=== PATIENT | female | born 1965 | race Two or more races ===

== ENCOUNTER 2020-02-23 16:22 | Emergency (ER) | payer OTHER ==
[~2020-02-23] VITALS: Ht 172.7 cm; Wt 47.6 kg
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
--- NOTE | 2020-02-23 16:27 | Emergency Room Report ---
History of Present Illness General Chief Complaint: Lower Extremity Injury Source: Patient Present Illness HPI Disclaimer: Please note that this report is being documented using DRAGON technology. This can lead to erroneous entry secondary to incorrect interpretation by the dictating instrument. HPI: 54-year-old female presents for evaluation of left knee pain and swelling. Symptoms ongoing over the past 2 years. She states she had a surgical repair after a knee fracture at [facility] 2 years ago. Chronic pain in that knee however she has been walking increased distances over the past few days. Notes increased swelling around the knee. Denies new trauma. Also reports a "knot" over the back of the knee. No skin breakdown. She reports some redness over the area she scratches on the pugh. Denies swelling of the lower extremity aside from in the popliteal fossa. Denies numbness or tingling. Pain with bearing weight. Improved by rest. Has not taken any medication prior to arrival. PMH: COPD, psychiatric history PSH: Left knee repair Allergies: Penicillin Social Hx: Tobacco use Allergies: Uncoded Allergies: PCN (Allergy, Unknown, 02/23/20) COVID-19 Screening Contact w/high risk pt: No Experienced COVID-19 symptoms?: No COVID-19 Testing performed JOURNAL CLERK: No Patient History Last Menstrual Period: unk Review of Systems All Other Systems: negative except mentioned in HPI Physical Exam Vital Signs Date Time Temp Pulse Resp B/P (MAP) Pulse Ox O2 Delivery O2 Flow Rate FiO2 02/23/20 16:18 98.2 94 18 103/55 (71) 95 Room Air General: Awake and alert, no acute distress HEENT: NC/AT. EOMI. Edentulous Resp: Normal work of breathing Skin: Intact. Multiple excoriations at different stages of healing over the lower extremity. No crepitus. There is approximately 8 x 10 circular area of erythema and warmth without significant edema, no crepitus, no purulent drainage over the anterior lateral portion of the mid pugh. MSK: Normal tone and bulk. Moving all extremities. Circumferential edema of the left knee with some limitation of range of motion on flexion extension secondary to pain. There is a palpable firm mass in the popliteal fossa. No pulsation. Brisk 2+ dorsalis pedis pulse. No edema of the lower extremities Neuro: Awake and alert. Mentating appropriately Medical Decision Making Diagnostic Impression: Primary Impression: Martin cyst Additional Impression: Cellulitis ER Course 54-year-old female with prior history of knee reconstruction presents for atraumatic left knee and swelling. Differential includes was not limited to occult injury, hardware failure, Martin's cyst, popliteal aneurysm, DVT, c ellulitis among others. The knee joint itself has mild circumferential edema but no overlying skin changes, no warmth or other clinical features of septic joint. There does appear to be an superficial cellulitis over the mid pugh. Ultrasound of the left lower extremity was obtained did not show deep vein thrombosis but did find a large Martin's cyst. This consistent with the pat ient's physical exam. X-ray shows hardware is in place without acute fracture. Effusion versus thickened synovial fluid noted by radiologist. I had planned on performing an arthrocentesis of the left knee to definitively evaluate for septic arthritis given the patient's prosthetic joint. The patient refused. She stated she no longer wished to be in the emergency department and that she can follow-up with her doctor tomorrow as long as she was prescribed antibiotics today. I explained to her that because of her prosthetic joint a septic knee infection could lead to loss of limb or significant morbidity. The patient verbalized understanding of this but still refused any blood work or joint aspiration in the emergency department. Again, she states she will see her doctor tomorrow. Clinically, she does not appear to have a septic joint at this time though cannot rule out definitively without aspiration. She was prescribed clindamycin and first dose was given in the ED. Patient instructed to return to the emergency department immediately should she change her mind regarding further work-up or if she develops any new or worsening symptoms. Crutches were provided for the patient at her request. CT/MRI/US Diagnostic Results CT/MRI/US Diagnostic Results : Impression Final Report EXAM: US Duplex Left Lower Extremity Veins CLINICAL HISTORY: SWELL TECHNIQUE: Real-time duplex ultrasound scan of the left lower extremity veins integrating B-mode two-dimensional vascular structure, Doppler spectral analysis, color flow Doppler imaging and compression. COMPARISON: No relevant prior studies available. FINDINGS: Deep veins: No DVT in the visualized common femoral, femoral, proximal deep femoral or popliteal veins. The veins demonstrate normal color flow, are normally compressible, with normal phasic flow and/or augmentation response. Superficial veins: Unremarkable. No thrombus in the greater saphenous vein. Soft tissues: Large Martin's cyst measuring 5.5 x 2.5 cm with mild internal complexity. IMPRESSION: 1. No DVT. 2. Large Martin's cyst measuring 5.5 x 2.5 cm with mild internal complexity. Radiologist: Gurmeet Loo MD Electronically Signed: 02/23/20 19:02 Study ready at 18:43 and initial results transmitted at 19:02 Last Vital Signs Date Time Temp Pulse Resp B/P (MAP) Pulse Ox O2 Delivery O2 Flow Rate FiO2 02/23/20 16:18 98.2 94 18 103/55 (71) 95 Room Air Disposition: HOME, SELF-CARE Condition: Stable Scripts Ibuprofen* (MOTRIN*) 600 Mg Tablet 600 MG ORAL Q6H PRN for For Pain, #30 TAB 0 Refills Prov: Carlos Burch MD 02/23/20 Clindamycin Hcl (CLINDAMYCIN HCL) 300 Mg Capsule 300 MG ORAL THREE TIMES A DAY for 10 Days, #30 CAP Prov: Carlos Burch MD 02/23/20 Carols uBrch MD Feb 23, 2020 16:27
--- NOTE | 2020-02-23 16:39 | NUR ---
ED Nurse Note: Xray at bedside
[2020-02-23] MEDS ORDERED: HYDROcodone/Acetamin 7.5/325 tab ORAL ONE (17:15)
--- NOTE | 2020-02-23 17:18 | Diagnostic Imaging Report ---
EXAM: XR Left Knee, 3 Views CLINICAL HISTORY: PAIN TECHNIQUE: Three views of the left knee. COMPARISON: No relevant prior studies available. FINDINGS: Bones/joints: No acute fracture. Large joint effusion versus synovial thickening. Chronic fracture deformities of the tibia and fibula. Status post lateral tibial ORIF with a plate and screw construct. No hardware complication. No dislocation. Soft tissues: Unremarkable. IMPRESSION: 1. No acute fracture. 2. No hardware complication. 3. Large joint effusion versus synovial thickening.
[2020-02-23] MEDS ORDERED: Lidocaine 1% Plain 30 ml INJ ONE (18:00)
--- NOTE | 2020-02-23 18:06 | NUR ---
ED Nurse Note: Ultrasound at bedside
--- NOTE | 2020-02-23 19:03 | Diagnostic Imaging Report ---
EXAM: US Duplex Left Lower Extremity Veins CLINICAL HISTORY: NIRMALLL TECHNIQUE: Real-time duplex ultrasound scan of the left lower extremity veins integrating B-mode two-dimensional vascular structure, Doppler spectral analysis, color flow Doppler imaging and compression. COMPARISON: No relevant prior studies available. FINDINGS: Deep veins: No DVT in the visualized common femoral, femoral, proximal deep femoral or popliteal veins. The veins demonstrate normal color flow, are normally compressible, with normal phasic flow and/or augmentation response. Superficial veins: Unremarkable. No thrombus in the greater saphenous vein. Soft tissues: Large Martin's cyst measuring 5.5 x 2.5 cm with mild internal complexity. IMPRESSION: 1. No DVT. 2. Large Martin's cyst measuring 5.5 x 2.5 cm with mild internal complexity.
--- NOTE | 2020-02-23 19:09 | NUR ---
ED Nurse Note: Patient spoke to PETE, patient refusing knee tap, pt is stating she will have follow up tomorrow and would like to go home.
[2020-02-23] MEDS ORDERED: CLINDAMYCIN HC300 MG ORAL (19:12)
[2020-02-23] MEDS ORDERED: IBUPROFEN600 M1 ORAL (19:12)
[2020-02-23] MEDS ORDERED: Clindamycin 150mg cap ORAL SCH (19:15)
--- NOTE | 2020-02-23 19:20 | NUR ---
HAND-OFF: Report given to Amirah HARRINGTON.
[2020-02-23 19:35] VITALS: BP 110/62
--- NOTE | 2020-02-23 19:35 | NUR ---
ER DISCHARGE NOTE: Patient is cleared to be discharged per ERMD, pt is aox4, on room air, with stable vital signs. pt was given dc and prescription instructions, pt was able to verbalize understanding, pt id band removed. pt is able to ambulate with crutches. pt took all belongings. pt stable upon discharge.
== END 2020-02-23 19:35 | disposition home or self-care (01) ==
LOC: EDBD 16:22 → EMR 16:40
DX: M71.22 Synovial cyst of popliteal space [Baker], left knee (principal); J44.9 Chronic obstructive pulmonary disease, unspecified; Z88.0 Allergy status to penicillin; Z87.891 Personal history of nicotine dependence
CPT/HCPCS: 73562; 93971; Z7502; 99284